=== PATIENT | male | born 1960 | race African-American/Black ===

== ENCOUNTER 2018-03-24 12:15 | Outpatient (CLI) | payer OTHER ==
--- NOTE | 2018-03-24 14:07 | MRI ---
MRI CERVICAL SPINE WITHOUT CONTRAST: HISTORY: Cervical spondylosis. Whiplash injury years ago. Chronic neck pain, radiating down both shoulders a nd arms x 1 year. COMPARISON: 09/03/2015. FINDINGS: Appropriate T1 marrow signal intensity of the cervical vertebrae. Cervical spine vertebral body heig ht is maintained. There is no fracture. No significant STIR hyperintensity to suggest vertebral bod y edema or ligamentous injury. Visualized brain parenchyma, cervicomedullary junction, cervical cord , and the upper thoracic cord have an overall normal signal intensity. No evidence of cord expansion or abnormal T2 signal intensity. C2-C3: Central disk bulge. No significant central canal stenosis. Neural foramen are patent. C3-C4: Broad-based disk-osteophyte complex. Moderate central canal stenosis. Moderate to severe ri ght and moderate left foraminal narrowing due to bilateral uncovertebral hypertrophy. C4-C5: Broad-based disk-osteophyte complex with a right paracentral component. Severe central canal stenosis. Severe right and moderate left foraminal narrowing. C5-C6: Broad-based disk-osteophyte complex with moderate to severe central canal stenosis. Severe r ight and mild left foraminal narrowing. C6-C7: Broad-based disk-osteophyte complex with mild to moderate central canal stenosis. Mild right and mild to moderate left foraminal narrowing. C7-T1: No evidence of significant central canal stenosis. Mild bilateral foraminal narrowing. IMPRESSION: 1. Multilevel degenerative changes of the cervical spine. When compared to the previous examination , the overall degree of central canal stenosis has slightly progressed when compared to the previous examination at the C4-C5 level. 2. Previously suggested subtle T2 hyperintensity at the C5-C6 level is difficult to appreciate on th e current exam. 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 POS: [facility]
== END 2018-03-24 12:16 | disposition home or self-care (01) ==
LOC: SCSMRI 12:15
PROVIDERS: ATTEND Neurological Surgery
DX: M48.02 Spinal stenosis, cervical region (principal); M47.812 Spondylosis without myelopathy or radiculopathy, cervical region; G95.89 Other specified diseases of spinal cord
CPT/HCPCS: 72141

== ENCOUNTER 2018-05-11 06:51 | Outpatient (CLI) | payer OTHER ==
[2018-05-11 10:24] LABS: Hemoglobin 13.1 g/dL (14.0-18.0); Mean Corpuscular HGB CONC 32.9 g/dL (32.0-36.0); Mean Corpuscular Hemoglobin 31.1 pg (27.0-31.0); Mean Corpuscular Volume 94.7 fL (78.0-98.0); Mean Platelet Volume 7.4 fL (7.4-10.4); Platelet Count 250 thou/uL (130-400); RBC Distribution Width 12.3 % (11.5-14.5); Red Blood Cell (RBC) Count 4.21 mill/uL (4.70-6.10); White Blood Cell (WBC) Count 6.4 thou/uL (4.8-10.8)
[2018-05-11 10:47] LABS: Anion Gap 15 mmol/L (10-20); BUN (Urea Nitrogen) 17 mg/dL (8.4-25.7); Calc. Creatinine Clearance 0 mL/min (70-130); Calcium 9.1 mg/dL (7.8-10.44); Carbon Dioxide 22 mmol/L (22-29); Chloride 108 mmol/L (98-107); Estimated GFR-MDRD 79; Glucose 113 mg/dL (70-105); Potassium 4.5 mmol/L (3.5-5.1); Sodium 140 mmol/L (136-145)
--- NOTE | 2018-05-11 21:22 | EKG ---
Test Reason : Blood Pressure : / mmHG Vent. Rate : 060 BPM Atrial Rate : 060 BPM P-R Int : 156 ms QRS Dur : 082 ms QT Int : 402 ms P-R-T Axes : 073 012 034 degrees QTc Int : 402 ms Sinus rhythm with marked sinus arrhythmia Early repolarization Otherwise normal ECG When compared with ECG of 01-APR-2007 15:29, No significant change was found Confirmed by GABY PRESSLEY, S[place] ([id number]) on 05/11/2018 9:22:06 PM Referred By: CHRIS Confirmed By:DR. Teddy GRIFFIN MD
== END 2018-05-11 06:52 | disposition home or self-care (01) ==
LOC: LABBT 06:51
PROVIDERS: ATTEND Neurological Surgery
DX: Z01.818 Encounter for other preprocedural examination (principal); M47.12 Other spondylosis with myelopathy, cervical region
CPT/HCPCS: 80048; 85027; 93005; 93010

== ENCOUNTER 2018-05-12 06:04 | Day surgery (SDC) | payer OTHER ==
[2018-05-11 09:34] VITALS: BMI 24.3
[2018-05-12] MEDS ORDERED: Sodium Chloride 0.9% 0 ML ONE (06:30)
[2018-05-12] MEDS ORDERED: Fentanyl 100 MCG/2 ML VIAL ONE (06:58)
[2018-05-12] MEDS ORDERED: Midazolam HCl 2 mg/2 ml Vial ONE (06:58)
[2018-05-12] MEDS ORDERED: Fentanyl 250 MCG/5 ML VIAL ONE (07:03)
[2018-05-12] MEDS ORDERED: Bacitracin Zinc Ointment 30 gm TUBE ONE ×2 (07:25→10:00)
== END 2018-05-12 09:55 | disposition home or self-care (01) ==
LOC: SURG A 06:04 → UNDOADMIN 06:04 → SDC 06:04 → EDSTATUS 09:00 → SDC 09:55 → UNDODISIN 09:55
PROVIDERS: ATTEND Neurological Surgery
DX: M47.12 Other spondylosis with myelopathy, cervical region (principal); M48.02 Spinal stenosis, cervical region; Z79.899 Other long term (current) drug therapy; Z53.8 Procedure and treatment not carried out for other reasons
CPT/HCPCS: 80048; 85027; 93005; 93010; J2250; J3010; J3490